=== PATIENT | female | born 1955 | race Caucasian/White ===

== ENCOUNTER 2021-04-27 10:00 | Outpatient (RCR) | payer OTHER, MEDICARE | END 2021-05-25 | disposition home or self-care (01) | LOC: WSPT | DX: R26.81 Unsteadiness on feet (principal); R42 Dizziness and giddiness ==

== ENCOUNTER 2023-05-15 08:57 | Outpatient (RCR) | payer MEDICARE | END 2023-05-25 | disposition home or self-care (01) | LOC: WSPT | DX: M76.62 Achilles tendinitis, left leg (principal); M72.2 Plantar fascial fibromatosis ==